=== PATIENT | female | born 2000 | race Asian ===

== ENCOUNTER 2022-02-12 16:20 | Emergency (ER) | payer OTHER ==
[~2022-02-12] VITALS: Ht 152.4 cm; Wt 47.3 kg
[2022-02-12 17:38] LABS: BASO # 0.1 10^3/uL (0.0-0.2); BASO % 0.6 % (0.0-1.0); EOS # 0.1 10^3/uL (0.0-0.5); HEMATOCRIT 41.3 % (36.0-47.0); HEMOGLOBIN 13.5 g/dl (12.0-15.5); LYMPH # 3.4 10^3/uL (1.5-5.0); LYMPH % 42.2 % (24.0-44.0); MEAN CORPUSCULAR HEMOGLOBIN 30.5 pg (27.0-33.0); MEAN CORPUSCULAR HGB CONC 32.7 g/dl (32.0-36.5); MEAN CORPUSCULAR VOLUME 93.2 fl (80.0-96.0); MONO # 0.6 10^3/uL (0.0-0.8); MONO % 7.1 % (2.0-8.0); NEUTROPHILS # 3.9 10^3/uL (1.5-8.5); NEUTROPHILS % 48.8 % (36.0-66.0); PLATELET COUNT, AUTOMATED 236 10^3/uL (150-450); RED BLOOD COUNT 4.43 10^6/uL (4.00-5.40)
[2022-02-12 17:51] LABS: ALBUMIN 4.4 GM/DL (3.2-5.2); ALT/SGPT 27 U/L (12-78); BILIRUBIN,DIRECT 0.1 MG/DL (0.0-0.2); BILIRUBIN,TOTAL 0.5 MG/DL (0.2-1.0); BLOOD UREA NITROGEN 21 MG/DL (7-18); CALCIUM LEVEL 9.5 MG/DL (8.5-10.1); CARBON DIOXIDE LEVEL 27 MEQ/L (21-32); CHLORIDE LEVEL 107 MEQ/L (98-107); CREATININE FOR GFR 0.57 MG/DL (0.55-1.30); GLOMERULAR FILTRATION RATE > 60.0 (>60); GLUCOSE, FASTING 92 MG/DL (70-100); LIPASE 158 U/L (73-393); POTASSIUM SERUM 3.9 MEQ/L (3.5-5.1); SODIUM LEVEL 140 MEQ/L (136-145); TOTAL PROTEIN 7.7 GM/DL (6.4-8.2)
[2022-02-12 18:14] LABS: HCG, SERUM QUALITATIVE NEGATIVE (NEGATIVE)
[2022-02-12 19:16] VITALS: BP 133/65
== END 2022-02-12 19:18 | disposition home or self-care (01) ==
LOC: M ED 16:20
DX: R10.2 Pelvic and perineal pain (principal); R10.12 Left upper quadrant pain; Z87.11 Personal history of peptic ulcer disease

== ENCOUNTER 2023-09-21 17:18 | Emergency (ER) | payer OTHER ==
[~2023-09-21] VITALS: Ht 152.4 cm; Wt 44.1 kg
[2023-09-21 17:19] VITALS: TEMP 97.9
[2023-09-21 19:33] VITALS: BP 126/84; O2SAT 98
[2023-09-21] MEDS ORDERED: LIDOCAINE 2% MDV 20ML VIAL SC ONE (21:50)
[2023-09-21] MEDS ORDERED: CEPH500C PO (22:18)
== END 2023-09-21 22:23 | disposition home or self-care (01) ==
LOC: M ED 17:18
DX: S61.217A Laceration without foreign body of left little finger without damage to nail, initial encounter (principal); W26.0XXA Contact with knife, initial encounter; Y92.009 Unspecified place in unspecified non-institutional (private) residence as the place of occurrence of the external cause; Y93.89 Activity, other specified; Y99.9 Unspecified external cause status; Z79.2 Long term (current) use of antibiotics

== ENCOUNTER 2024-05-02 08:06 | Emergency (ER) | payer OTHER ==
[~2024-05-02] VITALS: Ht 149.9 cm; Wt 43.2 kg
[~2024-05-02 08:06] MED LIST: CEPH500C PO
[2024-05-02 08:27] VITALS: BP 125/79; TEMP 97.9; O2SAT 97
== END 2024-05-02 10:38 | disposition home or self-care (01) ==
LOC: EDSEX 08:06 → M ED 08:06 → EDBD 08:06 → M ED 10:38
DX: S00.33XA Contusion of nose, initial encounter (principal); V47.5XXA Car driver injured in collision with fixed or stationary object in traffic accident, initial encounter; Y92.410 Unspecified street and highway as the place of occurrence of the external cause; Y93.9 Activity, unspecified; Y99.9 Unspecified external cause status

== ENCOUNTER → 2024-11-01 | Outpatient (CLI) | payer OTHER ==
[2024-11-01 19:18] LABS: HEMATOCRIT 53.5 % (36.0-47.0); HEMOGLOBIN 17.4 g/dl (12.0-15.5); MEAN CORPUSCULAR HGB CONC 32.5 g/dl (32.0-36.5); MEAN CORPUSCULAR VOLUME 95.4 fl (80.0-96.0); PLATELET COUNT, AUTOMATED 223 10^3/uL (150-450); RED BLOOD COUNT 5.61 10^6/uL (4.00-5.40); WHITE BLOOD COUNT 8.2 10^3/uL (4.0-10.0)
[2024-11-01 19:21] LABS: ERYTHROCYTE SEDIMENTATION RATE 19 mm/hr (0-20)
[2024-11-01 19:45] LABS: URIC ACID 4.2 MG/DL (3.1-7.8)
[2024-11-01 19:48] LABS: RHEUMATOID FACTOR QUANT < 3.5 IU/ML (<14)
[2024-11-01 19:49] LABS: ALBUMIN 4.1 G/DL (3.2-5.2); ALKALINE PHOSPHATASE 63 U/L (35-104); ALT/SGPT 18 U/L (7.0-40); AST/SGOT 16 U/L (<34); BILIRUBIN,TOTAL 0.5 MG/DL (0.3-1.2); BLOOD UREA NITROGEN 18 MG/DL (9-23); C REACTIVE PROTEIN QUANTITATIV < 0.50 MG/DL (<1.0); CALCIUM LEVEL 9.4 MG/DL (8.5-10.1); CARBON DIOXIDE LEVEL 26 MMOL/L (20-31); CHLORIDE LEVEL 105 MMOL/L (98-107); CREATININE FOR GFR 0.61 MG/DL (0.55-1.30); GLOMERULAR FILTRATION RATE > 60.0 (>60); GLUCOSE, FASTING 93 MG/DL (60-100); POTASSIUM SERUM 4.2 MMOL/L (3.5-5.1); SODIUM LEVEL 142 MMOL/L (136-145)
== END ==
LOC: M WUC 14:16
PROVIDERS: ATTEND Physician Assistant
DX: M25.541 Pain in joints of right hand (principal)